=== PATIENT | female | born 1950 | race Caucasian/White ===

== ENCOUNTER → 2021-11-15 | Outpatient (CLI) | payer MEDICARE, OTHER ==
[~2021-11-15] MED LIST: ALBUTEROL0.09 MG/A2 IH; AMLODIPINE BESY10 MG PO; ASPIRIN ADULT L81 M2 PO; AUGMENTIN 875 M1 TAB PO; BACTRIM DS 8001 TA1 PO; CIPRO250 MG PO; CIPRO500 MG PO; CIPROFLOXACIN500 MG PO; DULOXETINE HCL30 MG PO; HYDROCODONE-AC1 EAC1 PO; HYDROXYZINE HCL25 MG PO; LOPRESSOR25 MG PO; PAXIL20 MG PO; PYRIDIUM200 MG PO; VICODIN 5/500 505 MG PO; VICODIN ES 7501 TAB PO; VITAMIN D350 MC2 PO
== END | disposition home or self-care (01) ==
LOC: ORTHO 01:17
PROVIDERS: ATTEND Orthopaedic Surgery
DX: S72.002D Fracture of unspecified part of neck of left femur, subsequent encounter for closed fracture with routine healing (principal); X58.XXXD Exposure to other specified factors, subsequent encounter

== ENCOUNTER 2021-11-26 09:17 | Emergency (ER) | payer MEDICARE, OTHER ==
[~2021-11-26] VITALS: Ht 165.1 cm; Wt 68.0 kg
[2021-11-26] MEDS ORDERED: COLACE100 MG PO (11:31)
[2021-11-26 11:46] LABS: BILIRUBIN Negative (Negative); BLOOD Negative (Negative); CLARITY Cloudy (Clear); COLOR Yellow (Yellow); GLUCOSE Negative (Negative); KETONE 4+ (Negative); LEUKO ESTERASE Trace (Negative); NITRITE Negative (Negative); SPECIFIC GRAVITY 1.025 (1.001-1.030)
[2021-11-26 12:13] LABS: EPITHELIAL CELLS 16-20
[2021-11-26 12:14] LABS: BACTERIA 3+; RBC 0-2 rbc/hpf (0-2)
== END 2021-11-26 12:25 | disposition home or self-care (01) ==
LOC: ED 09:17
PROVIDERS: Student in an Organized Health Care Education/Training Program
DX: M25.552 Pain in left hip (principal); Z98.890 Other specified postprocedural states; Z79.899 Other long term (current) drug therapy; Z79.82 Long term (current) use of aspirin; Z90.89 Acquired absence of other organs; Z96.642 Presence of left artificial hip joint

== ENCOUNTER 2021-12-06 12:27 | Emergency (ER) | payer MEDICARE, OTHER ==
[~2021-12-06] VITALS: Ht 160 cm; Wt 63.5 kg
[~2021-12-06 12:27] MED LIST changes: +COLACE100 MG PO
[2021-12-06 12:56] LABS: BASO % 0.5 % (0.0-1.0); EOS # 0.2 10*3/uL (0.0-0.4); EOS % 2.5 % (1.0-4.0); HEMATOCRIT 44.6 % (37.0-47.0); LYMPH # 1.2 10*3/uL (1.3-4.4); LYMPH % 16.6 % (27.0-41.0); MEAN CELL VOLUME 85.8 fl (81.0-99.0); MEAN CORPUSCULAR HGB 28.7 pg (27.0-31.0); MEAN CORPUSCULAR HGB CONC 33.4 g/dl (33.0-37.0); MEAN PLATELET VOLUME 10.4 fl (9.6-12.3); MONO # 0.4 10*3/uL (0.1-1.0); MONO % 5.2 % (3.0-9.0); NEUT # 5.6 10*3/uL (2.3-7.9); NEUT % 74.9 % (47.0-73.0); PLATELET COUNT AUTOMATED 357 10*3/uL (130-400); RED CELL DISTRI WIDTH 13.1 % (0-14.5); WHITE BLOOD COUNT 7.5 10*3/uL (4.8-10.8)
[2021-12-06 13:14] LABS: ALKALINE PHOSPHATASE 132 U/L (45-117); BUN 26 mg/dl (7-24); CHLORIDE 105 mmol/L (98-107); CREATININE 0.89 mg/dL (0.55-1.02); LIPASE 205 U/L (73-393); POTASSIUM 3.4 mmol/L (3.5-5.1); SGOT/AST 15 IU/L (3-35); SGPT/ALT 19 U/L (12-78); SODIUM 138 mmol/L (136-145)
[2021-12-06 13:30] LABS: BILIRUBIN Negative (Negative); BLOOD Negative (Negative); CLARITY Cloudy (Clear); COLOR Dark Yellow (Yellow); GLUCOSE Negative (Negative); KETONE 3+ (Negative); LEUKO ESTERASE Negative (Negative); NITRITE Negative (Negative); PH 5.5 (4.5-8.0); SPECIFIC GRAVITY >= 1.030 (1.001-1.030)
[2021-12-06 13:39] LABS: URINE AMPHETAMINES < 1000 (1000ng/ml); URINE BARBITURATES < 200 (200ng/ml); URINE BENZODIAZEPINES < 200 (200ng/ml); URINE CANNABINOIDS (THC) < 50 (50ng/ml); URINE COCAINE < 300 (300ng/ml); URINE METHADONE < 300 (300ng/ml); URINE OPIATES < 300 (300ng/ml)
[2021-12-06 13:40] LABS: BACTERIA TRACE; MUCOUS 1+
[2021-12-06 13:46] LABS: URINE PHENCYCLIDINE < 25 (25ng/ml)
[2021-12-06] MEDS ORDERED: MIRALAX POWDER17 G1 PO (18:49)
== END 2021-12-06 18:53 | disposition home or self-care (01) ==
LOC: ED 12:27
PROVIDERS: Physician Assistant
DX: K59.00 Constipation, unspecified (principal); Z90.89 Acquired absence of other organs